=== PATIENT | male | born 1965 | race Caucasian/White ===

== ENCOUNTER → 2016-05-10 | Outpatient (CLI) | payer BC ==
[~2016-05-10] MED LIST: ASPIRIN EC81 MG PO; AVAPRO150 MG PO; ISOSORBIDE MONO30 MG PO; LIPITOR TAB 2020 MG PO; NITROSTAT 0.40.4 MG SL; PLAVIX 75 MG TA75 MG PO; PROTONIX 40 MG40 M1 PO; SUCRALFATE1 GM PO
== END ==
LOC: KOH-I 08:28
DX: K22.10 Ulcer of esophagus without bleeding (principal); R10.9 Unspecified abdominal pain; R07.9 Chest pain, unspecified; R10.13 Epigastric pain; K21.9 Gastro-esophageal reflux disease without esophagitis; N28.89 Other specified disorders of kidney and ureter
CPT/HCPCS: 76705

== ENCOUNTER → 2016-05-28 | Outpatient (CLI) | payer BC ==
[2016-05-28 08:43] LABS: HEMOGLOBIN 14.7 gm/dl (14.0-17.5); RED BLOOD COUNT 5.09 M/UL (4.20-5.50); WHITE BLOOD COUNT 4.4 K/UL (4.5-11.0)
[2016-05-28 09:03] LABS: BUN/CREATININE RATIO 22 (0-10)
== END ==
LOC: NM 07:47
PROVIDERS: Nurse Practitioner Family
DX: Z00.00 Encounter for general adult medical examination without abnormal findings (principal); I10 Essential (primary) hypertension; R53.83 Other fatigue; E78.5 Hyperlipidemia, unspecified; E55.9 Vitamin D deficiency, unspecified; K21.9 Gastro-esophageal reflux disease without esophagitis; R07.9 Chest pain, unspecified; R10.9 Unspecified abdominal pain
CPT/HCPCS: 36415; 78227; 80053; 80061; 82607; 84439; 84443; 85025; A9537; J2805

== ENCOUNTER → 2016-07-17 | Outpatient (CLI) | payer BC | LOC: LAB 10:16 | DX: G82.20 Paraplegia, unspecified (principal); R20.9 Unspecified disturbances of skin sensation; W57.XXXA Bitten or stung by nonvenomous insect and other nonvenomous arthropods, initial encounter | CPT/HCPCS: 36415; 86618 ==

== ENCOUNTER → 2016-08-05 | Day surgery (SDC) | payer BC ==
[~2016-08-05] VITALS: Ht 175.3 cm; Wt 92.1 kg
== END | disposition home or self-care (01) ==
LOC: OR 07:09
PROVIDERS: Internal Medicine Gastroenterology
PROC: 0DBP8ZZ Excision of Rectum, Via Natural or Artificial Opening Endoscopic (ICD-10-PCS; 2016-08-05)
PROC: 0DB68ZX Excision of Stomach, Via Natural or Artificial Opening Endoscopic, Diagnostic (ICD-10-PCS; principal; 2016-08-05 10:00)
PROC: 0DBN8ZZ Excision of Sigmoid Colon, Via Natural or Artificial Opening Endoscopic (ICD-10-PCS; 2016-08-05 10:00)
DX: D12.5 Benign neoplasm of sigmoid colon (principal); K62.1 Rectal polyp; K29.50 Unspecified chronic gastritis without bleeding; K21.0 Gastro-esophageal reflux disease with esophagitis; K22.10 Ulcer of esophagus without bleeding; K64.0 First degree hemorrhoids; K64.4 Residual hemorrhoidal skin tags; I11.9 Hypertensive heart disease without heart failure; I25.119 Atherosclerotic heart disease of native coronary artery with unspecified angina pectoris; I25.2 Old myocardial infarction; E66.9 Obesity, unspecified; N40.0 Benign prostatic hyperplasia without lower urinary tract symptoms; Z79.02 Long term (current) use of antithrombotics/antiplatelets; Z79.82 Long term (current) use of aspirin; Z79.899 Other long term (current) drug therapy; Z87.19 Personal history of other diseases of the digestive system; Z95.5 Presence of coronary angioplasty implant and graft; Z87.11 Personal history of peptic ulcer disease
CPT/HCPCS: J7030

== ENCOUNTER → 2016-08-09 | Outpatient (CLI) | payer BC | LOC: EMI 07-30 14:30 | DX: G95.9 Disease of spinal cord, unspecified (principal); M47.14 Other spondylosis with myelopathy, thoracic region; R93.7 Abnormal findings on diagnostic imaging of other parts of musculoskeletal system | CPT/HCPCS: 72156; 72157; A9577; J7050 ==

== ENCOUNTER → 2020-03-07 | Outpatient (CLI) | payer BC, OTHER ==
[~2020-03-07] MED LIST changes: +AMLODIPINE BESYL5 MG PO; +ATORVASTATIN CA40 MG PO; +CLOPIDOGREL75 MG PO; +ECOTRIN81 MG PO; +IRBESARTAN150 MG PO; +LATANOPROST2.5 ML EYEBOTH; +NITROSTAT0.4 MG SL; +PROTONIX40 MG PO; +UROXATRAL 10 MG10 MG PO; +VITAMIN D PO
== END ==
LOC: EXRD 11:11
DX: M47.26 Other spondylosis with radiculopathy, lumbar region (principal); R53.1 Weakness
CPT/HCPCS: 72100

== ENCOUNTER → 2020-03-19 | Outpatient (CLI) | payer BC, OTHER | LOC: HEART 5 13:03 → MRI 13:03 → HEART 5 13:30 → EXRD 14:00 | DX: I70.90 Unspecified atherosclerosis (principal); R53.1 Weakness; M47.26 Other spondylosis with radiculopathy, lumbar region; G57.93 Unspecified mononeuropathy of bilateral lower limbs; M51.36 Other intervertebral disc degeneration, lumbar region; M48.061 Spinal stenosis, lumbar region without neurogenic claudication | CPT/HCPCS: 72148; 93922; 93925 ==

== ENCOUNTER → 2020-06-23 | Outpatient (CLI) | payer BC, OTHER ==
[2020-06-23 09:34] LABS: HEMOGLOBIN 14.9 gm/dl (14.0-17.5); RED BLOOD COUNT 5.19 M/UL (4.20-5.50); WHITE BLOOD COUNT 3.4 K/UL (4.5-11.0)
[2020-06-23 09:49] LABS: BUN/CREATININE RATIO 15 (0-10)
== END ==
LOC: LAB 09:10
PROVIDERS: Internal Medicine Cardiovascular Disease
DX: R94.39 Abnormal result of other cardiovascular function study (principal); I25.119 Atherosclerotic heart disease of native coronary artery with unspecified angina pectoris
CPT/HCPCS: 36415; 71046; 80048; 85025

== ENCOUNTER 2020-06-25 12:25 | Outpatient (CLI) | payer BC, OTHER ==
[~2020-06-25] VITALS: Ht 180.3 cm; Wt 98.0 kg
[~2020-06-25 12:25] MED LIST changes: -AMLODIPINE BESYL5 MG PO; -ATORVASTATIN CA40 MG PO; -CLOPIDOGREL75 MG PO; -ECOTRIN81 MG PO; -IRBESARTAN150 MG PO; -LATANOPROST2.5 ML EYEBOTH; -NITROSTAT0.4 MG SL; -PROTONIX40 MG PO; -UROXATRAL 10 MG10 MG PO; -VITAMIN D PO
[2020-06-25] MEDS ORDERED: UROXATRAL 10 MG10 MG PO (13:09)
[2020-06-25] MEDS ORDERED: ECOTRIN81 MG PO (13:10)
[2020-06-25] MEDS ORDERED: AMLODIPINE BESYL5 MG PO (13:10)
[2020-06-25] MEDS ORDERED: CLOPIDOGREL75 MG PO (13:11)
[2020-06-25] MEDS ORDERED: ATORVASTATIN CA40 MG PO (13:11)
[2020-06-25] MEDS ORDERED: ISOSORBIDE MONO30 MG PO (13:12)
[2020-06-25] MEDS ORDERED: IRBESARTAN150 MG PO (13:12)
[2020-06-25] MEDS ORDERED: LATANOPROST2.5 ML EYEBOTH (13:13)
[2020-06-25] MEDS ORDERED: NITROSTAT0.4 MG SL (13:14)
[2020-06-25] MEDS ORDERED: VITAMIN D PO (13:15)
[2020-06-25] MEDS ORDERED: PROTONIX40 MG PO (13:15)
== END 2020-06-25 21:15 | disposition home or self-care (01) ==
LOC: CATH 12:25 → MED SURG 4 15:49 → CATH 21:15
DX: I25.119 Atherosclerotic heart disease of native coronary artery with unspecified angina pectoris (principal); I10 Essential (primary) hypertension; I25.2 Old myocardial infarction; I49.5 Sick sinus syndrome; K21.9 Gastro-esophageal reflux disease without esophagitis; N40.1 Benign prostatic hyperplasia with lower urinary tract symptoms; R33.8 Other retention of urine; E78.5 Hyperlipidemia, unspecified; Z95.5 Presence of coronary angioplasty implant and graft; Z87.891 Personal history of nicotine dependence; Z88.8 Allergy status to other drugs, medicaments and biological substances; Z79.82 Long term (current) use of aspirin; Z79.02 Long term (current) use of antithrombotics/antiplatelets; Z79.899 Other long term (current) drug therapy
CPT/HCPCS: 85347; 93571; 99152; C1769; C1887; C1894; J1644; J2250; J3010; J7030; Q9967

== ENCOUNTER → 2020-12-17 | Outpatient (CLI) | payer BC ==
[~2020-12-17] MED LIST changes: +AMLODIPINE BESYL5 MG PO; +ATORVASTATIN CA40 MG PO; +CLOPIDOGREL75 MG PO; +ECOTRIN81 MG PO; +IRBESARTAN150 MG PO; +LATANOPROST2.5 ML EYEBOTH; +NITROSTAT0.4 MG SL; +PROTONIX40 MG PO; +UROXATRAL 10 MG10 MG PO; +VITAMIN D PO
== END ==
LOC: EXRD 13:46
DX: M51.36 Other intervertebral disc degeneration, lumbar region (principal)
CPT/HCPCS: 72100